=== PATIENT | male | born 1985 | race Caucasian/White ===

== ENCOUNTER 2020-01-12 01:45 | Emergency (ER) | payer OTHER ==
[~2020-01-12] VITALS: Ht 172.7 cm; Wt 90.7 kg
[2020-01-12 01:45] VITALS: BP_SYST 90
--- NOTE | 2020-01-12 02:05 | NUR ---
POLICE OFFICERS DECIDED TO TAKE PT TO A DIFFERENT HOSPITAL FOR MEDICAL CLEARANCE AND WARRANT DRAW
== END 2020-01-12 02:05 | disposition left against medical advice (07) ==
LOC: SED 01:45
DX: M25.511 Pain in right shoulder (principal); Z53.21 Procedure and treatment not carried out due to patient leaving prior to being seen by health care provider
CPT/HCPCS: 99281; J7030